=== PATIENT | male | born 1985 | race African-American/Black ===

== ENCOUNTER 2021-08-18 00:53 | Emergency (ER) | payer OTHER ==
[~2021-08-18] VITALS: Ht 182.9 cm; Wt 91.0 kg
--- NOTE | 2021-08-18 01:04 | PHYS DOC ---
General Adult HPI: HPI: ".. I ve got a bad leg cramp... " " ..It will not let up...".. " I wasn't doing anything.. I could not get the cramp out of my knee area.." Patient is a 36 year old male who presents with above hx and complaints of severe right leg cramps . Pain is primarily located in right knee area. There is no cording in the leg. No history of recent trauma. Patient is able do straight leg lift. No history of coagulopathy or DVTs with him or family members. No recent travel last few days. Patient normally healthy. No history immunosuppression. Patient has completed COVID vaccination. Review of Systems: Review of Systems: Constitutional: Denies fever or chills Eyes: Denies change in visual acuity HENT: Denies nasal congestion or sore throat Respiratory: Denies cough or shortness of breath Cardiovascular: Denies chest pain or edema GI: Denies abdominal pain, nausea, vomiting, bloody stools or diarrhea : Denies dysuria Musculoskeletal: Complains of severe right leg muscle cramps Integument: Denies rash Neurologic: Denies headache, focal weakness or sensory changes Endocrine: Denies polyuria or polydipsia Lymphatic: Denies swollen glands Psychiatric: Denies depression or anxiety Family History: Family History: Noncontributory to presentation Current Medications: Current Meds: See nursing for home meds Allergies: Allergies: No known drug allergies Physical Exam: PE: Constitutional: Well developed, well nourished, no acute distress, non-toxic appearance. [] HENT: Normocephalic, atraumatic, bilateral external ears normal, oropharynx moist, no oral exudates, nose normal. [] Eyes: PERRLA, EOMI, conjunctiva normal, no discharge. [] Neck: Normal range of motion, no tenderness, supple, no stridor. [] Cardiovascular:Heart rate regular rhythm, no murmur [] Lungs & Thorax: Bilateral breath sounds equal apex on auscultation [] Abdomen: Bowel sounds normal, soft, no tenderness, no masses, no pulsatile masses. [] Skin: Warm, dry, no erythema, no rash. [] Back: No tenderness, no CVA tenderness. [] Extremities: No tenderness, no cyanosis, no clubbing, ROM intact, no edema. Except findings in right knee. Neurologic: Alert and oriented X 3, normal motor function, normal sensory function, no focal deficits noted. [] Psychologic: Affect anxious, judgement normal, mood normal. [] EKG: EKG: [] Radiology/Procedures: Radiology/Procedures: [] Heart Score: C/O Chest Pain: N/A Risk Factors: Risk Factors: DM, Current or recent (<one month) smoker, HTN, HLP, family history of CAD, obesity. Risk Scores: Score 0 - 3: 2.5% MACE over next 6 weeks - Discharge Home Score 4 - 6: 20.3% MACE over next 6 weeks - Admit for Clinical Observation Score 7 - 10: 72.7% MACE over next 6 weeks - Early Invasive Strategies Course & Med Decision Making: Course & Med Decision Making Pertinent Labs and Imaging studies reviewed. (See chart for details) At time of discharge patient symptoms had resolved. Encouraged to get adequate hydration. Take Tylenol and ibuprofen for pain. Follow-up primary care. Return if any concerns. Impression: 1. Right leg cramp [] Venkata Disclaimer: Dragjammie Disclaimer: This electronic medical record was generated, in whole or in part, using a voice recognition dictation system. Departure Departure: Referrals: SURYA RAO APRN (PCP) Venkata Disclaimer This chart was dictated in whole or in part using Voice Recognition software in a busy, high-work load, and often noisy Emergency Department environment. It may contain unintended and wholly unrecognized errors or omissions. KARAN BARTON MD Aug 18, 2021 01:04
[2021-08-18 01:45] LABS: CALCIUM 8.6 mg/dL (8.5-10.1); CREATININE 0.9 mg/dL (0.7-1.3); GFR 114.9; POTASSIUM 3.5 mmol/L (3.5-5.1)
[2021-08-18 01:46] LABS: MAGNESIUM 1.8 mg/dL (1.8-2.4)
[2021-08-18 01:50] LABS: BASO % 0 % (0-3); EOS # 0.1 x10^3/uL (0.0-0.7); EOS % 2 % (0-3); HEMATOCRIT 44.1 % (39.0-53.0); HEMOGLOBIN 14.7 g/dL (13.0-17.5); LYMPH # 0.7 x10^3/uL (1.0-4.8); LYMPH % 8 % (24-48); MEAN CORPUSCULAR HEMOGLOBIN 31 pg (25-35); MEAN CORPUSCULAR HGB CONC 33 g/dL (31-37); MEAN CORPUSCULAR VOLUME 93 fL (79-100); MONO # 0.6 x10^3/uL (0.0-1.1); MONO % 6 % (0-9); NEUT # 7.5 x10^3uL (1.8-7.7); NEUT % 84 % (31-73); PLATELET COUNT 193 x10^3/uL (140-400); RED BLOOD COUNT 4.75 x10^6/uL (4.30-5.70); RED CELL DISTRIBUTION WIDTH 12.8 % (11.5-14.5)
[2021-08-18] MEDS ORDERED: ORPHENADRINE CITRATE 60 MG/2 ML VIAL. IM ONE (02:00)
[2021-08-18] MEDS ORDERED: KETOROLAC 60 MG/2 ML VIAL. IM ONE (02:00)
[2021-08-18] MEDS ORDERED: IV RINGERS SOLUTION,LACTATED 1,000 ML IV SCH (02:00)
[2021-08-18] MEDS ORDERED: ACETAMINOPHEN 500 MG TABLET PO ONE (02:00)
[2021-08-18 03:42] VITALS: BP 120/72
== END 2021-08-18 03:54 | disposition home or self-care (01) ==
LOC: ER 00:53
DX: M79.604 Pain in right leg (principal)
CPT/HCPCS: 36415; 80048; 83735; 85025; 96360; 96361; 96372; 99284; J1885; J2360; J7120